=== PATIENT | female | born 1975 | race Caucasian/White ===

== ENCOUNTER 2017-10-03 16:45 | Emergency (ER) | payer MEDICAID ==
[2017-10-03 17:00] VITALS: BP 132/79; PULSE 62; RESP 15; TEMP 98.3; O2SAT 100
--- NOTE | 2017-10-03 17:31 | C.PDOC ---
History Of Present Illness 42 y/o female c/o bump to left distal forearm x 2 weeks. not tender, no injury. Time Seen by Provider: 10/03/17 17:26 Chief Complaint (Nursing): Upper Extremity Problem/Injury History Per: Patient Onset/Duration Of Symptoms: Days (14) Current Symptoms Are (Timing): Still Present Severity: None Past Medical History Reviewed: Historical Data, Nursing Documentation, Vital Signs Vital Signs: Last Vital Signs Temp 98.3 F 10/03/17 16:56 Pulse 62 10/03/17 16:56 Resp 15 10/03/17 16:56 BP 132/79 10/03/17 16:56 Pulse Ox 100 10/03/17 18:31 - Medical History PMH: No Chronic Diseases Family History: States: Unknown Family Hx - Social History Hx Alcohol Use: No Hx Substance Use: No - Immunization History Hx Tetanus Toxoid Vaccination: No Hx Influenza Vaccination: Yes Hx Pneumococcal Vaccination: No Review Of Systems Constitutional: Negative for: Fever, Chills Musculoskeletal: Positive for: Other (bump0 on wrist) Neurological: Negative for: Weakness, Numbness Physical Exam - Physical Exam Appears: Non-toxic, Toxic Skin: Warm, Dry Extremity: Other (pea sized hard non tender mass to distal radial area, not mobile, no overlying swelling, erythema or warmth. ) Pulses: Left Radial: Normal Neurological/Psych: Oriented x3, Normal Speech, Normal Cognition, Normal Motor, Normal Sensation ED Course And Treatment O2 Sat by Pulse Oximetry: 100 Disposition - Disposition Referrals: Scott Peraza III, MD [Staff Provider] - Rosaura Shah MD [Staff Provider] - Disposition: HOME/ ROUTINE Disposition Time: 17:40 Condition: STABLE Additional Instructions: Please follow up with hand specialist Dr Shah or Orthopedist Dr Peraza as soon as possible. Forms: General Discharge Instructions, [facility] (American) - Clinical Impression Clinical Impression: Mass of left wrist
== END 2017-10-03 17:40 | disposition home or self-care (01) ==
LOC: C.ER 16:45
DX: R22.32 Localized swelling, mass and lump, left upper limb (principal)